=== PATIENT | female | born 1985 | race Two or more races ===

== ENCOUNTER 2020-11-13 23:51 | Emergency (ER) | payer OTHER ==
[~2020-11-13] VITALS: Ht 152.4 cm; Wt 70.3 kg
[~2020-11-13 23:51] MED LIST: PREN1TAB59 PO
[2020-11-14 00:50] VITALS: BP 125/75
== END 2020-11-14 02:31 | disposition home or self-care (01) ==
LOC: ER 23:57
DX: U07.1 COVID-19 (principal); J02.8 Acute pharyngitis due to other specified organisms
CPT/HCPCS: 71045-TC